=== PATIENT | female | born 1990 | race Caucasian/White ===

== ENCOUNTER → 2021-05-11 11:52 | Outpatient (CLI) | payer SELFPAY ==
[2021-05-11 12:47] LABS: Pregnancy Test Urine Negative (Negative)
== END ==
PROVIDERS: Family Provider Physician Assistant; PCP Family Medicine; Referring Provider Family Medicine; Visit Provider Family Medicine
DX: F32.9 Major depressive disorder, single episode, unspecified (principal); F41.9 Anxiety disorder, unspecified; Z30.09 Encounter for other general counseling and advice on contraception
CPT/HCPCS: 81025

== ENCOUNTER → 2022-05-05 08:17 | Outpatient (CLI) | payer OTHER, SELFPAY ==
[2022-05-05 10:07] LABS: Pregnancy Test Urine Negative (Negative)
== END ==
PROVIDERS: Family Provider Physician Assistant; PCP Family Medicine; Referring Provider Family Medicine; Visit Provider Family Medicine
DX: F32.9 Major depressive disorder, single episode, unspecified (principal); F41.9 Anxiety disorder, unspecified; Z30.09 Encounter for other general counseling and advice on contraception
CPT/HCPCS: 81025